=== PATIENT | male | born 1960 | race Caucasian/White ===

== ENCOUNTER 2019-12-24 09:32 | Outpatient (CLI) | payer OTHER, SELFPAY ==
--- NOTE | ~2019-12-24 | XR_ITS ---
XR chest 2V DATE: 12/24/2019 09:41 INDICATION: Cough and fever TECHNIQUE: PA and lateral views COMPARISON: 02/11/[address] pulmonary scan FINDINGS: Normal heart size. No hilar or mediastinal enlargement. There is minimal infiltrate or atel ectasis at the lung bases. The lungs are otherwise clear. No pleural effusion or pulmonary vascular congestion or pneumothorax. Diffuse idiopathic skeletal hyperostosis of the thoracic and lumbar spine. IMPRESSION: Minimal infiltrate or atelectasis at the lung bases Reviewed, dictated and finalized at location B. PROJECT COORDINATOR
== END 2019-12-24 09:33 | disposition home or self-care (01) ==
LOC: ANHIMG 09:34
PROVIDERS: PCP Internal Medicine; Visit Provider Nurse Practitioner
DX: R05 Cough (principal); R93.89 Abnormal findings on diagnostic imaging of other specified body structures
CPT/HCPCS: 71046